=== PATIENT | male | born 1950 | race Caucasian/White ===

== ENCOUNTER 2020-04-22 04:06 | Emergency (ER) | payer OTHER ==
[~2020-04-22] VITALS: Ht 167.6 cm; Wt 68.0 kg
[~2020-04-22 04:06] MED LIST: ACAI500C PO; VIT500LI PO
--- NOTE | 2020-04-22 04:21 | NUR ---
SANIA FROM HOME FOR C.O BACKACHE. 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 PT REPORTED THE PAIN HAS BEEN WORSE FOR THE PAST FEW HOURS AND RADIATONG TO THE BACK. PT WAS TRANSFERRED TO BED 9 AND PLACED ON A MONITOR .
[2020-04-22] MEDS ORDERED: MORPHINE SULFATE INJ 4 MG/ML DISP.SYRIN ONE (05:20)
[2020-04-22] MEDS ORDERED: MORPHINE SULFATE INJ 2 MG/ML DISP.SYRIN ONE (05:20)
[2020-04-22] MEDS ORDERED: MORPHINE SULFATE INJ 2 MG/ML DISP.SYRIN IM ONE (05:30)
--- NOTE | 2020-04-22 05:38 | NUR ---
CALLED PT'S FRIEND ARYAN STRINGER AT [phone] PER PT'S REQUEST TO VERTICAL BORER THE PT AND LEFT A MESSAGE.
[2020-04-22 07:19] VITALS: BP 163/89
--- NOTE | 2020-04-22 07:19 | NUR ---
pt is medically stable for d/c. Patient discharged to home in stable condition. Written and verbal after care instructions given. Patient verbalizes understanding of instruction.
== END 2020-04-22 07:20 | disposition home or self-care (01) ==
LOC: ER 04:08
DX: M54.5 Low back pain (principal); G89.29 Other chronic pain; J44.9 Chronic obstructive pulmonary disease, unspecified; I10 Essential (primary) hypertension; Z60.2 Problems related to living alone; Z79.899 Other long term (current) drug therapy
CPT/HCPCS: 96372; 99283; J2270 ×2